=== PATIENT | female | born 1975 | race African-American/Black ===

== ENCOUNTER 2017-01-15 05:10 | Inpatient (IN) | payer OTHER ==
[2017-01-15 07:08] VITALS: BMI 27.4
[2017-01-15] MEDS ORDERED: PROPOFOL 20 ML ONE (07:46)
[2017-01-15] MEDS ORDERED: MIDAZOLAM HCL 2 MG/2 ML SINGLE DOSE VIAL ONE (07:46)
[2017-01-15] MEDS ORDERED: LIDOCAINE HCL/PF 2% SDV 5ML VIAL ONE ×2 (07:50→09:57)
[2017-01-15] MEDS ORDERED: ROCURONIUM BROMIDE 50 MG/5 ML VIAL ONE (07:55)
[2017-01-15] MEDS ORDERED: GENTAMICIN SO4 80 MG/2 ML VIAL ONE (08:00)
[2017-01-15] MEDS ORDERED: BUPIVACAINE HCL/PF 0.5% (5MG/ML) 10 ML VIAL ONE (08:00)
[2017-01-15] MEDS ORDERED: ceFAZolin SODIUM 1 GM VIAL IVPB ONE (08:40)
[2017-01-15] MEDS ORDERED: LIDOCAINE 1%/EPI 1:100000 (20 ML MULTI DOSE VIAL) INF ONE (08:54)
[2017-01-15] MEDS ORDERED: DEXAMETHASONE SOD PHOSPHATE 4 MG/1 ML VIAL ONE ×2 (08:54→09:57)
[2017-01-15] MEDS ORDERED: ONDANSETRON 4 MG/2 ML VIAL ONE ×2 (08:54→09:57)
[2017-01-15] MEDS ORDERED: NEOSTIGMINE METHYLSULFATE 0.5 MG/ML - 10 ML MDV ONE (09:55)
[2017-01-15] MEDS ORDERED: GLYCOPYRROLATE 0.2 MG/1 ML VIAL ONE (09:55)
[2017-01-15] MEDS ORDERED: oxyCODONE HCL 5 MG TABLET PO PRN (10:25)
[2017-01-15] MEDS ORDERED: PATIENT'S OWN MEDICATION (NON-FORMULARY) (Omeprazole [Omeprazole] 10 MG) PO PRN (11:08)
[2017-01-15] MEDS ORDERED: SUMAtriptan SUCCINATE 50 MG TABLET PO PRN (11:08)
[2017-01-15] MEDS ORDERED: DOCUSATE SODIUM 100 MG CAPSULE (FP) PO PRN (11:14)
[2017-01-15] MEDS ORDERED: PROMETHAZINE HCL 25 MG/1 ML VIAL IVPUSH PRN (11:52)
[2017-01-15] MEDS ORDERED: ONDANSETRON 4 MG/2 ML VIAL IVPUSH PRN (11:52)
[2017-01-15] MEDS: LACTATED RINGERS SOLUTION 1,000 ML IV SCH ×2 (12:30→22:53)
[2017-01-15] MEDS: morphine CARPU-JECT 4 MG/1 ML DISP.SYRIN IVPUSH PRN (14:59)
[2017-01-15] MEDS: oxyCODONE HCL 5 MG TABLET PO PRN (17:41)
[2017-01-15] MEDS ORDERED: ceFAZolin SODIUM 1 GM VIAL ONE ×2 (17:46→20:59)
[2017-01-15] MEDS ORDERED: DEXTROSE 5%-WATER - 50 ML IVPB ONE ×2 (17:46→20:59)
[2017-01-15] MEDS: CEFAZOLIN 1 GM in DEXTROSE 5%-WATER - 50 ML IVPB SCH (17:51)
[2017-01-15] MEDS ORDERED: CEFAZOLIN (PRE-DOCKED) 50 ML IVPB SCH (18:00)
[2017-01-15] MEDS: ONDANSETRON 4 MG/2 ML VIAL IVPB PRN (18:50)
[2017-01-15] MEDS: NORTRIPTYLINE HCL 10 MG CAPSULE PO SCH (22:57)
[2017-01-16] MEDS: CEFAZOLIN 1 GM in DEXTROSE 5%-WATER - 50 ML IVPB SCH (02:01)
[2017-01-16] MEDS: oxyCODONE HCL 5 MG TABLET PO PRN ×2 (02:04→06:28)
[2017-01-16] MEDS: LACTATED RINGERS SOLUTION 1,000 ML IV SCH ×2 (08:55→13:05)
[2017-01-16] MEDS: morphine CARPU-JECT 4 MG/1 ML DISP.SYRIN IVPUSH PRN ×2 (09:00→13:04)
[2017-01-16] MEDS: ONDANSETRON 4 MG/2 ML VIAL IVPB PRN ×2 (09:01→14:59)
--- NOTE | 2017-01-16 09:42 | PN ---
Progress Note (short form) - Note Progress Note: POD #1 - s/p C5-C6 anterior cervical decompression with instrumentation and fusion under general anesthesia. Pt. doing well, resting comfortably in bed. VSS. No complaints. No apparent anesthetic complications noted. Continue current care.
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
--- NOTE | 2017-01-16 11:40 | DS ---
"Physical Examination Vital Signs: Vital Signs Temperature 98.6 F 01/16/17 06:00 Pulse Rate 71 01/16/17 06:00 Respiratory Rate 20 01/16/17 06:00 Blood Pressure 132/80 01/16/17 06:00 O2 Sat by Pulse Oximetry (%) 100 01/15/17 21:00 Discharge Summary Reason For Visit: LEFT C5-6 DISC HERNIATION Current Active Problems Cervical disc herniation (Acute) Migraines (Acute) Condition: Good - Instructions Diet, Activity, Other Instructions: Please return to the ED with new, persistent, or worsening symptoms. Please follow-up with providers as indicated. Keep incision clean and dry. No baths, sponge bath only. Wear cervical collar at all times. Please call your surgeon if you develop redness, drainage from your incision or fevers. Call your surgeon's office to schedule a follow-up appointment for February 10, 2017 No heavy lifting with your arms No NSAIDS This report was requested by: Mayra Garza | Reference #: [id number] Referrals: Abdoul Villarreal MD, FAANS [Staff Physician] - (Please follow-up with your neurosurgeon on February 10, 2017 for post op visit) Disposition: HOME - Home Medications Comprehensive Discharge Medication List: Ambulatory Orders Nortriptyline HCl [Pamelor -] 40 mg PO HS 01/14/17 Omeprazole 10 mg PO PRN PRN 01/14/17 Sumatriptan Succinate [Imitrex -] 50 mg PO PRN PRN 01/14/17 Oxycodone HCl/Acetaminophen [Percocet 5-325 mg Tablet] 1 - 2 tab PO Q6H PRN #60 tab MDD 8 01/15/17"
[2017-01-16] MEDS: NORTRIPTYLINE HCL 10 MG CAPSULE PO SCH (23:19)
[2017-01-17] MEDS: oxyCODONE HCL 5 MG TABLET PO PRN ×2 (03:25→09:59)
[2017-01-17] MEDS ORDERED: PT OWN MED DRAWER 7, Y5N ONE ×2 (08:54→09:58)
[2017-01-17 09:10] VITALS: BP 128/71; PULSE 102; TEMP 98.6
[2017-01-17] MEDS ORDERED: ACETAMINOPHEN 325 MG TABLET (FP) PO ONE (10:03)
[2017-01-17] MEDS ORDERED: ACETAMINOPHEN 325 MG TABLET (FP) ONE (10:03)
--- NOTE | 2017-01-17 11:28 | PN ---
Progress Note (short form) - Note Progress Note: POD#2 Pt oob to chair this am. She is having pain but overall decreased numbness/ tingling in her arm with improvement in weakness. She is tolerating a diet, no dysphagia. Vital Signs Period Temp Pulse Resp BP Sys/Grewal Pulse Ox Last 24 Hr 97.6 F-98.7 F 79-102 18-20 126-143/71-90 100 TONYA-20ml serosangrenous GEN: Appears comfortable CV:RRR Lungs: CTA b/l Neck: inc c/d/i with dermabond. No ecchymosis/hematoma. Drain removed intact and minimal fluid leaking from removal site. Applied new 4x4 gauze dressing and tegaderm. [place] collar in place. Neuro: digital associate strength equal b/l and shoulder shrug intact b/l. Moving upper ext without difficulty b/l. Flexion/extension against resistance 5/5 b/l to upper ext. LE: no calf tendneress or swelling b/l A/P: 41 yo female s/p C5-C6 anterior cervical fusion, POD#2 Case D/w Dr. Villarreal and drain was removed today will plan for dishcarge to home Oral pain medications/colace/ No NSAIDS F/w on February 10 in the office, wear cervical collar and keep dressing covered with gauze/tegaderm.
== END 2017-01-17 13:11 | disposition home or self-care (01) | DRG 321 ==
LOC: JSAMEDAYSX 05:10 → EDSTATUS 08:00 → J8W 12:57
PROVIDERS: ADMIT Neurological Surgery; ATTEND Registered Nurse
PROC: 0RB30ZZ Excision of Cervical Vertebral Disc, Open Approach (ICD-10-PCS; 2017-01-15)
PROC: 0PS304Z Reposition Cervical Vertebra with Internal Fixation Device, Open Approach (ICD-10-PCS; 2017-01-15)
PROC: BR10YZZ Fluoroscopy of Cervical Spine using Other Contrast (ICD-10-PCS; 2017-01-15)
PROC: 0RG10A0 Fusion of Cervical Vertebral Joint with Interbody Fusion Device, Anterior Approach, Anterior Column, Open Approach (ICD-10-PCS; principal; 2017-01-15 08:00)
DX: S13.161S Dislocation of C5/C6 cervical vertebrae, sequela (principal); G43.909 Migraine, unspecified, not intractable, without status migrainosus; M40.40 Postural lordosis, site unspecified; N80.9 Endometriosis, unspecified; Z91.013 Allergy to seafood; Y08.89XS Assault by other specified means, sequela
CPT/HCPCS: 72050-TC; 76000-TC; 94760; 97116-GP; 97161-GP

== ENCOUNTER 2017-12-29 05:12 | Day surgery (SDC) | payer OTHER ==
[2017-12-28 08:19] VITALS: BMI 26.2
[2017-12-29] MEDS ORDERED: ePHEDrine SULFATE 50 MG/1 ML AMPULE ONE (07:28)
[2017-12-29] MEDS ORDERED: MIDAZOLAM HCL 2 MG/2 ML SINGLE DOSE VIAL ONE ×4 (07:28→10:49)
[2017-12-29] MEDS ORDERED: PROPOFOL 20 ML ONE ×5 (07:28→07:29)
[2017-12-29] MEDS ORDERED: SUCCINYLCHOLINE CHLORIDE 200 MG/10 ML VIAL ONE (07:28)
--- NOTE | 2017-12-29 10:50 | HP ---
[facility] - Chief Complaint Chief Complaint: left shoulder pain - Past Medical History Allergies/Adverse Reactions: Allergies Allergy/AdvReac Type Severity Reaction Status Date / Time shellfish derived Allergy Severe Hives Verified 12/28/17 08:19 ...LMP: 12/01/17 - Current Medications Current Medications: Home Medications Medication Instructions Recorded Nortriptyline HCl [Pamelor -] 40 mg PO HS 01/14/17 Sumatriptan Succinate [Imitrex -] 50 mg PO PRN PRN 01/14/17 Acetaminophen W/ Codeine #3 1 tab PO Q6H PRN 12/28/17 [Tylenol # 3 -] Meloxicam 15 mg PO DAILY 12/28/17 Cyclobenzaprine HCl [Flexeril -] 10 mg PO HS 12/29/17 [facility] Physical Exam - Physical Examination Vital Signs: Vital Signs Period Temp Pulse Resp BP Sys/Grewal Pulse Ox Last 24 Hr 97.6 F-97.6 F 85-85 20-20 115-115/66-66 99 General Appearance: Well Nourished, Well Developed, Alert & Oriented x3 ENT: Clear Lung: Normal air movement Heart: Regular rate & rhythm Extremities: Other (left shoulder- + ttp, decr rom, + neer, + white, nvi MRI + impingement) Neurological: Intact, Alert, Oriented Satellite Impression/Plan - Impression/Plan Impression: left shoulder impingement Operative Procedure: left shoulder arthroscopy with SAD Date to be Performed: 12/29/17
[2017-12-29] MEDS ORDERED: ceFAZolin SODIUM 1 GM VIAL IVPB ONE (11:20)
[2017-12-29] MEDS ORDERED: oxyCODONE HCL 5 MG TABLET PO PRN (11:37)
[2017-12-29] MEDS ORDERED: ONDANSETRON 4 MG/2 ML VIAL IVPUSH PRN (11:37)
[2017-12-29] MEDS ORDERED: LACTATED RINGERS SOLUTION 1,000 ML IV SCH (11:45)
--- NOTE | 2017-12-29 12:00 | OP ---
Operative Note - Note: Operative Date: 12/29/[address] ([facility]) Pre-Operative Diagnosis: left shoulder impingement Operation: left shoulder arthroscopy with SAD, DCE Post-Operative Diagnosis: Same as Pre-op Surgeon: Wander Walker Finance Vice President: Uzair Beck Anesthesiologist/COPIER TECHNICIAN: Kuldip Sage Anesthesia: General, Local Specimens Removed: shavings Estimated Blood Loss (mls): 5 Operative Report Dictated: Yes
[2017-12-29] MEDS ORDERED: ONDANSETRON 4 MG/2 ML VIAL ONE (12:28)
[2017-12-29] MEDS ORDERED: PROMETHAZINE HCL 25 MG/1 ML VIAL ONE (12:34)
[2017-12-29] MEDS ORDERED: PROMETHAZINE HCL 25 MG/1 ML VIAL IVPUSH PRN (12:51)
--- NOTE | 2017-12-29 14:05 | OP ---
DATE OF OPERATION: 12/29/2017 PREOPERATIVE DIAGNOSIS: Left shoulder impingement syndrome. POSTOPERATIVE DIAGNOSIS: Left shoulder impingement syndrome. PROCEDURE: Left shoulder arthroscopy, subacromial decompression, distal clavicle excision. SURGEON: Mick Griffith MD FINISHED GARMENT INSPECTOR: THERESA Mcrae ANESTHESIOLOGIST: Kuldip Sage CRNA ANESTHESIA: Left interscalene block and LMA anesthesia. DRAINS: None. COMPLICATIONS: None. SPECIMENS: Arthroscopic shavings. BLOOD GIVEN: None. FLUID REPLACEMENT: 700 mL. INDICATION: This patient is a 42-year-old female with a preoperative diagnosis of left shoulder impingement syndrome. After understanding the potential risks, complications, alternatives, and benefits of surgery versus nonsurgical treatment, the patient elected to undergo this procedure. DESCRIPTION OF PROCEDURE: The patient was brought to the operating room, peripheral IV placed, IV sedation given. IV Ancef 1 g was given. A left interscalene block was performed. LMA anesthesia was induced. She was placed in the beach chair position with ample padding throughout. The left upper extremity was prepped and draped in sterile fashion, bony landmarks marked out with a marking pen and posterior portal was established. Diagnostic glenohumeral arthroscopy was performed. The patient's glenohumeral joint looked normal. There was no glenohumeral osteoarthritis. The undersurface of the rotator cuff looked pristine. The biceps tendon looked good. The labrum looked good. There was no pathology. The area was copiously irrigated and washed out. Next our attention turned to the subacromial space. A lateral portal was established with a spinal needle. Under direct visualization, a green cannula was introduced in the subacromial space. An ArthroCare wand was used to do a soft tissue bursectomy. After this extensive debridement, this revealed a relatively large subacromial spur and a moderate-sized distal clavicular spur. Photographs were taken. The top surface of the rotator cuff looked good. There were no tears. The 5.5-mm oval bur was then used to do a bony decompression of the distal clavicle as well as the subacromial spur. It was fine-tuned in reverse and cleaned up with a shaver. The area was copiously irrigated and washed out, all debris removed, photographs taken. The rotator cuff was directly visualized through a full range of motion of the left shoulder. There was no point of impingement. There was much more clearance. The area was copiously irrigated and washed out, all instrumentation removed, excess saline removed. The arthroscopy portals were closed with 3-0 nylon sutures. The area was then washed and dried, covered with Aquacel dressing. She was put into a sling. Total operative time was about 40 minutes. She was extubated. She was stable throughout the entire case and was brought to the ambulatory recovery room in stable condition. MICK GRIFFITH M.D. [id number]
[2017-12-29 14:36] VITALS: BP 126/73; PULSE 77; TEMP 97.8
--- NOTE | 2017-12-30 17:58 | PATH ---
Surgical Pathology Report Patient Name: SHITAL COLBY Med. Rec. #: [id number] /Age/Gender: 1975 (Age: 42) / F Account: [id number] Location: [facility] SURGICAL Taken: 12/29/2017 Received: 12/29/2017 Reported: 12/30/2017 Physicians: Wander Walker M.D. Specimen(s) Received LEFT SHOULDER SHAVINGS Clinical History Impingement left shoulder Final Diagnosis SHOULDER SHAVINGS, LEFT, ARTHROSCOPY WITH SUBACROMIAL DECOMPRESSION: FRAGMENTS OF BENIGN CARTILAGE, DENSE FIBROCONNECTIVE TISSUE, ADIPOSE TISSUE, BONE, SYNOVIUM, AND SKELETAL MUSCLE. Electronically Signed Trang Hernandez M.D. Gross Description Received in formalin, labeled "left shoulder shavings," is a 3.5 x 3.4 x 0.4 cm. aggregate of cortes-yellow soft tissue fragments. A desk representative portion is submitted in one cassette. /12/30/2017 saudi12/30/2017
== END 2017-12-29 14:34 | disposition home or self-care (01) ==
LOC: JASU-SURG 05:12
PROVIDERS: ATTEND Orthopaedic Surgery
PROC: 0RBK4ZZ Excision of Left Shoulder Joint, Percutaneous Endoscopic Approach (ICD-10-PCS; 2017-12-29)
PROC: 0RNK4ZZ Release Left Shoulder Joint, Percutaneous Endoscopic Approach (ICD-10-PCS; 2017-12-29)
PROC: 0PBB4ZZ Excision of Left Clavicle, Percutaneous Endoscopic Approach (ICD-10-PCS; principal; 2017-12-29 11:00)
DX: M75.42 Impingement syndrome of left shoulder (principal)
CPT/HCPCS: 84703; 88304-TC